=== PATIENT | female | born 2000 | race Two or more races ===

== ENCOUNTER → 2022-04-22 | Outpatient (CLI) | payer MEDICAID ==
[2022-04-22 09:04] LABS: Basophils # (auto) 0 10 ^3/uL (0-0.2); Eosinophils # (auto) 0.1 10 ^3/uL (0-0.8); Hemoglobin 9.8 g/dL (12.2-16.2); Lymphocytes # (auto) 2.2 10 ^3/uL (0.4-5.4); Mean Corpuscular Hemoglobin 26.8 pg (28.0-32.0); Monocytes # (auto) 0.6 10 ^3/uL (0-1.3)
[2022-04-22 09:07] LABS: Basophils % (auto) 0.5 % (0.0-2.0); Hematocrit 29.4 % (36.0-46.0); Lymphocytes % (auto) 30.1 % (10.0-50.0); Mean Corpuscular Hgb Conc. 33.4 g/dL (32.0-36.0); Mean Corpuscular Volume 80.2 fL (80.0-100.0); Monocytes % (auto) 7.7 % (0.0-12.0); Neutrophils # (auto) 4.4 10 ^3/uL (1.6-8.6); Neutrophils % (auto) 59.7 % (37.0-80.0); Red Blood Cells 3.67 10^6/uL (4.0-5.20); Red Cell Distribution Width 14.7 % (11.8-14.3); White Blood Cell 7.4 10^3/uL (4.4-10.8)
== END | disposition home or self-care (01) ==
LOC: LAB 08:34
PROVIDERS: ATTEND Obstetrics & Gynecology
DX: Z34.80 Encounter for supervision of other normal pregnancy, unspecified trimester (principal); Z3A.00 Weeks of gestation of pregnancy not specified
CPT/HCPCS: 36415; 82951; 83036; 85025

== ENCOUNTER 2022-05-23 11:02 | Observation (INO) | payer MEDICAID ==
[~2022-05-23] VITALS: Ht 170.2 cm; Wt 61.2 kg
[2022-05-23] MEDS ORDERED: LACTATED RINGER'S 1,000 ML IV ONE (11:45)
[2022-05-23] MEDS ORDERED: ceFAZolin 2 GM in D5W 5% 100 ML IV ONE (11:45)
[2022-05-23] MEDS ORDERED: TERBUTALINE SULFATE 1 MG/ML 1ML VIAL SC SCH (11:45)
[2022-05-23] MEDS ORDERED: BETAMETHASONE ACET (30mg/5ml) 5ml Vial 6mg/ml IM ONE (11:45)
[2022-05-23] MEDS ORDERED: TERBUTALINE SULFATE 1 MG/ML 1ML VIAL SC ONE (11:47)
[2022-05-23] MEDS ORDERED: PREN1TAB71 OR (13:49)
== END 2022-05-23 14:14 | disposition home or self-care (01) ==
LOC: LDRP 11:02 → UNDOADMOB 11:02 → LDRP 11:19 → UNDODISOB 14:14
PROVIDERS: ADMIT Obstetrics & Gynecology; ATTEND Obstetrics & Gynecology
DX: O60.03 Preterm labor without delivery, third trimester (principal); O26.853 Spotting complicating pregnancy, third trimester; O62.9 Abnormality of forces of labor, unspecified; Z3A.31 31 weeks gestation of pregnancy
CPT/HCPCS: 59025; 76815; 81002; 94760; 96365; 96372; G0378; J0690; J0702; J3105; J7060; J7120; 96360

== ENCOUNTER 2022-05-24 11:22 | Observation (INO) | payer MEDICAID ==
[~2022-05-24] VITALS: Ht 170.2 cm; Wt 61.2 kg
[~2022-05-24 11:22] MED LIST: PREN1TAB71 OR
[2022-05-24] MEDS ORDERED: BETAMETHASONE ACET (30mg/5ml) 5ml Vial 6mg/ml IM ONE ×2 (11:30→11:45)
== END 2022-05-24 13:02 | disposition home or self-care (01) ==
LOC: LDRP 11:22
PROVIDERS: ADMIT Obstetrics & Gynecology; ATTEND Obstetrics & Gynecology
DX: O60.03 Preterm labor without delivery, third trimester (principal); Z3A.31 31 weeks gestation of pregnancy
CPT/HCPCS: 59025; 81002; 94760; 96372; G0378; J0702

== ENCOUNTER 2022-05-28 10:27 | Observation (INO) | payer MEDICAID ==
[~2022-05-28] VITALS: Ht 170.2 cm; Wt 54.4 kg
[2022-05-28] MEDS ORDERED: NIF10C PO (11:53)
[2022-05-28] MEDS ORDERED: TERBUTALINE SULFATE 1 MG/ML 1ML VIAL SC SCH (12:00)
== END 2022-05-28 13:01 | disposition home or self-care (01) ==
LOC: LDRP 10:27 → UNDOADMOB 10:30 → UNDODISOB 13:01
PROVIDERS: ADMIT Obstetrics & Gynecology; ATTEND Obstetrics & Gynecology
DX: O60.03 Preterm labor without delivery, third trimester (principal); Z3A.32 32 weeks gestation of pregnancy
CPT/HCPCS: 59025; 76818; 81002; 94760; 96372; G0378; J3105

== ENCOUNTER 2022-06-04 08:27 | Observation (INO) | payer MEDICAID ==
[~2022-06-04 08:27] MED LIST changes: +NIF10C PO
== END 2022-06-04 11:51 | disposition home or self-care (01) ==
LOC: LDRP 11:01 → UNDOADMOB 11:01 → LDRP 11:05 → UNDODISOB 11:51
PROVIDERS: ADMIT Obstetrics & Gynecology; ATTEND Obstetrics & Gynecology
DX: O60.03 Preterm labor without delivery, third trimester (principal); Z3A.33 33 weeks gestation of pregnancy
CPT/HCPCS: 59025; 81002; G0378

== ENCOUNTER 2022-06-11 08:17 | Observation (INO) | payer MEDICAID | END 2022-06-11 14:46 | disposition home or self-care (01) | LOC: UNDOADMOB 13:58 → LDRP 13:58 | PROVIDERS: ADMIT Obstetrics & Gynecology; ATTEND Obstetrics & Gynecology | DX: O60.03 Preterm labor without delivery, third trimester (principal); Z3A.34 34 weeks gestation of pregnancy | CPT/HCPCS: 59025; 81002; 94760; G0378 ==

== ENCOUNTER → 2022-06-17 | Outpatient (CLI) | payer MEDICAID ==
[2022-06-17 09:23] LABS: Basophils # (auto) 0 10 ^3/uL (0-0.2); Eosinophils # (auto) 0 10 ^3/uL (0-0.8); Eosinophils % (auto) 0.3 % (0.0-7.0); Hemoglobin 10.5 g/dL (12.2-16.2); Lymphocytes # (auto) 1.3 10 ^3/uL (0.4-5.4); Monocytes # (auto) 0.8 10 ^3/uL (0-1.3); Red Cell Distribution Width 16.2 % (11.8-14.3)
[2022-06-17 09:25] LABS: Basophils % (auto) 0.1 % (0.0-2.0); Hematocrit 32.2 % (36.0-46.0); Lymphocytes % (auto) 13.7 % (10.0-50.0); Mean Corpuscular Hemoglobin 26.6 pg (28.0-32.0); Mean Corpuscular Hgb Conc. 32.6 g/dL (32.0-36.0); Mean Corpuscular Volume 81.7 fL (80.0-100.0); Monocytes % (auto) 8.3 % (0.0-12.0); Neutrophils # (auto) 7.2 10 ^3/uL (1.6-8.6); Neutrophils % (auto) 77.6 % (37.0-80.0); Red Blood Cells 3.95 10^6/uL (4.0-5.20); White Blood Cell 9.3 10^3/uL (4.4-10.8)
[2022-06-18 08:06] LABS: RPR Non Reactive (Non Reactive)
== END | disposition home or self-care (01) ==
LOC: LAB 09:04
PROVIDERS: ATTEND Obstetrics & Gynecology
DX: Z34.80 Encounter for supervision of other normal pregnancy, unspecified trimester (principal); Z3A.00 Weeks of gestation of pregnancy not specified
CPT/HCPCS: 36415; 84112; 85025; 86592

== ENCOUNTER 2022-06-18 07:44 | Observation (INO) | payer MEDICAID | END 2022-06-18 11:07 | disposition home or self-care (01) | LOC: LDRP 10:04 → UNDOADMOB 10:04 → LDRP 10:42 | PROVIDERS: ADMIT Obstetrics & Gynecology; ATTEND Obstetrics & Gynecology | DX: O60.03 Preterm labor without delivery, third trimester (principal); Z3A.35 35 weeks gestation of pregnancy | CPT/HCPCS: 59025; 81002; 94760; G0378 ==

== ENCOUNTER 2022-06-24 09:38 | Observation (INO) | payer MEDICAID | END 2022-06-24 10:15 | disposition home or self-care (01) | LOC: UNDOADMOB 09:38 → LDRP 09:38 → UNDODISOB 10:15 | PROVIDERS: ADMIT Obstetrics & Gynecology; ATTEND Obstetrics & Gynecology | DX: O60.03 Preterm labor without delivery, third trimester (principal); Z3A.36 36 weeks gestation of pregnancy | CPT/HCPCS: 59025; 81002; G0378 ==

== ENCOUNTER 2022-07-15 09:18 | Observation (INO) | payer MEDICAID | END 2022-07-15 12:45 | disposition home or self-care (01) | LOC: UNDOADMOB 09:18 → LDRP 09:18 | PROVIDERS: ADMIT Obstetrics & Gynecology; ATTEND Obstetrics & Gynecology | DX: O40.3XX0 Polyhydramnios, third trimester, not applicable or unspecified (principal); Z3A.39 39 weeks gestation of pregnancy | CPT/HCPCS: 59025; 76818; 81002; G0378 ==

== ENCOUNTER 2022-07-19 03:11 | Inpatient (IN) | payer MEDICAID ==
[~2022-07-19] VITALS: Ht 167.6 cm; Wt 64.9 kg
[~2022-07-19 03:11] MED LIST changes: -NIF10C PO
[2022-07-19] MEDS ORDERED: LACT. RINGERS/OXYTOCIN 20UNITS 500 ML IV ONE ×2 (03:45→04:15)
[2022-07-19] MEDS ORDERED: PENICILLIN G POT 5MIL/D5 50ML 50 ML IV ONE (03:45)
[2022-07-19] MEDS ORDERED: METHYLERGONOVINE MALEATE 0.2 MG/ML AMP IM PRN (03:45)
[2022-07-19] MEDS ORDERED: CARBOPROST TROMETHAMINE 250 MCG/1ML VIAL IM PRN (03:45)
[2022-07-19] MEDS ORDERED: PHISODERM TOP SOLN 240ML BTL TOP PRN (03:45)
[2022-07-19] MEDS ORDERED: DERMOPLAST 60ML BOTTLE TOP PRN (03:45)
[2022-07-19] MEDS ORDERED: WITCH HAZEL-GLYCERIN PAD TOP PRN (03:45)
[2022-07-19] MEDS ORDERED: LIDOCAINE 2%HCL (LOCAL ANESTH.) INJ 20ML MDV IJ PRN (03:45)
[2022-07-19] MEDS ORDERED: BUTORPHANOL TARTRATE 2 MG/1 ML VIAL IV PRN ×2 (03:45)
[2022-07-19] MEDS ORDERED: PROMETHAZINE HCL 25 MG/ML 1ML IV PRN (03:45)
[2022-07-19] MEDS ORDERED: miSOPROStol 100 mcg TAB SL PRN (03:45)
[2022-07-19] MEDS ORDERED: ONDANSETRON HCL 4 MG/2 ML VIAL IV PRN (03:45)
[2022-07-19] MEDS ORDERED: LACT. RINGERS/OXYTOCIN 20UNITS 1,000 ML IV SCH ×2 (03:45→07:15)
[2022-07-19 04:24] LABS: INR 0.95 (0.9-1.15); Partial Thromboplastin Time 28.1 sec (24.6-33.4)
[2022-07-19 04:27] LABS: Eosinophils # (auto) 0.1 10 ^3/uL (0-0.8); Hemoglobin 10.2 g/dL (12.2-16.2); Lymphocytes # (auto) 2.3 10 ^3/uL (0.4-5.4); Monocytes # (auto) 0.6 10 ^3/uL (0-1.3); Neutrophils # (auto) 5.3 10 ^3/uL (1.6-8.6)
[2022-07-19] MEDS: LACTATED RINGER'S 1,000 ML IV SCH ×2 (04:27→06:27)
[2022-07-19 04:30] LABS: Basophils # (auto) 0 10 ^3/uL (0-0.2); Basophils % (auto) 0.3 % (0.0-2.0); Eosinophils % (auto) 1.6 % (0.0-7.0); Hematocrit 29.9 % (36.0-46.0); Lymphocytes % (auto) 27.4 % (10.0-50.0); Mean Corpuscular Hemoglobin 27.2 pg (28.0-32.0); Mean Corpuscular Hgb Conc. 34.2 g/dL (32.0-36.0); Mean Corpuscular Volume 79.6 fL (80.0-100.0); Monocytes % (auto) 7.3 % (0.0-12.0); Neutrophils % (auto) 63.4 % (37.0-80.0); Red Blood Cells 3.75 10^6/uL (4.0-5.20); Red Cell Distribution Width 16.5 % (11.8-14.3); White Blood Cell 8.4 10^3/uL (4.4-10.8)
[2022-07-19 04:35] LABS: Potassium 3.7 mmol/L (3.5-5.1)
[2022-07-19 04:39] LABS: Albumin 2.8 g/dL (3.4-5.0); BUN/Creatinine Ratio 14.6; Calcium 8.4 mg/dL (8.5-10.1)
[2022-07-19 04:41] LABS: Bilirubin, Total 0.2 mg/dL (0.2-1.0); Total Protein 6.8 g/dL (6.4-8.2)
[2022-07-19 04:43] LABS: Alcohol, Urine < 3.0 mg/dL (0-10); Amphetamine Screen, Urine NEGATIVE (NEGATIVE); Barbiturate Scree,Urine NEGATIVE (NEGATIVE); Benzodiazephine Screen, Urine NEGATIVE (NEGATIVE); Cannabinoid Screen, Urine NEGATIVE (NEGATIVE); Cocaine Screen, Urine NEGATIVE (NEGATIVE); Opiate Scree,Urine NEGATIVE (NEGATIVE); Phencyclidine Screen, Urine NEGATIVE (NEGATIVE)
[2022-07-19 05:29] LABS: Urine Bacteria FEW /hpf (None Seen); Urine Blood Negative /uL (Negative); Urine Specific Gravity 1.017 (1.001-1.035); Urine WBC 39 /hpf (0 - 5); Urine WBC Clumps PRESENT /hpf (None Seen)
[2022-07-19] MEDS ORDERED: ePHEDrine SULFATE 50 MG/ML AMP IV ONE (05:30)
[2022-07-19] MEDS ORDERED: LACTATED RINGER'S 1,000 ML IV ONE (05:30)
[2022-07-19] MEDS ORDERED: fentaNYL CITRATE 100 MCG/2 ML VL IV ONE (05:30)
[2022-07-19] MEDS ORDERED: NALOXONE HCL 0.4 MG/ML VIAL IV ONE (05:30)
[2022-07-19] MEDS ORDERED: ROPIVACAINE HCL 200 ML EPI SCH (05:30)
[2022-07-19] MEDS ORDERED: PENICILLIN G POTASSIUM 2,500,000 UNITS in D5W 5% 50 ML IV SCH (07:45)
[2022-07-19] MEDS ORDERED: miSOPROStol 100 mcg TAB PR PRN (08:30)
[2022-07-19] MEDS ORDERED: ACETAMINOPHEN 325 MG TAB PO PRN (09:15)
[2022-07-19] MEDS ORDERED: ONDANSETRON ODT 4 MG TAB PO PRN (09:15)
[2022-07-19] MEDS ORDERED: DIPHENOXYLATE W/ATROPINE 2.5 MG TAB PO SCH (10:00)
[2022-07-19 14:36] VITALS: BP 107/52
[2022-07-19 19:00] VITALS: BP 107/62
[2022-07-19] MEDS: IBUPROFEN 600 MG TAB PO PRN (20:29)
[2022-07-19 23:15] VITALS: BP 100/62
[2022-07-20 03:25] VITALS: BP 98/62
[2022-07-20] MEDS: IBUPROFEN 600 MG TAB PO PRN (04:28)
[2022-07-20 05:06] LABS: RPR Non Reactive (Non Reactive)
[2022-07-20 07:15] VITALS: BP 104/58
== END 2022-07-20 10:55 | disposition home or self-care (01) | DRG 560 ==
LOC: LDRP 03:11 → OBSVTOIN 03:20 → LDRP 04:19
PROVIDERS: ADMIT Obstetrics & Gynecology; ATTEND Obstetrics & Gynecology
PROC: 10D07Z6 Extraction of Products of Conception, Vacuum, Via Natural or Artificial Opening (ICD-10-PCS; principal; 2022-07-19)
PROC: 3E0R3BZ Introduction of Anesthetic Agent into Spinal Canal, Percutaneous Approach (ICD-10-PCS; 2022-07-19)
PROC: 00HU33Z Insertion of Infusion Device into Spinal Canal, Percutaneous Approach (ICD-10-PCS; 2022-07-19)
PROC: 10907ZC Drainage of Amniotic Fluid, Therapeutic from Products of Conception, Via Natural or Artificial Opening (ICD-10-PCS; 2022-07-19)
DX: O40.3XX0 Polyhydramnios, third trimester, not applicable or unspecified (principal); Z37.0 Single live birth; O99.824 Streptococcus B carrier state complicating childbirth; Z3A.39 39 weeks gestation of pregnancy; Z20.822 Contact with and (suspected) exposure to COVID-19
CPT/HCPCS: 36415; 59025; 59409; 62282; 80053; 80307; 81001; 81002; 85025; 85610; 85730; 86592; 86850; 86900; 86901; 87426; 94760; 94762; 96360; 96361; 96365; 96366; 96372; G0378; J2540; J2590; J7060